=== PATIENT | female | born 1975 | race American Indian/Alaskan Native ===

== ENCOUNTER 2019-07-30 23:40 | Emergency (ER) | payer SELFPAY ==
[2019-07-31] MEDS ORDERED: SODIUM CHLORIDE 0.9% 1000 ML 1,000 ML IV ONE ×2 (00:02→01:30)
--- NOTE | 2019-07-31 00:05 | Emergency Department Report ---
<GIBSON LANCASTERRENE - Last Filed: 07/31/19 02:27> ED Altered Mental Status HPI - General Chief Complaint: Altered Mental Status Stated Complaint: ETOH Time Seen by Provider: 07/30/19 23:58 Source: EMS Mode of arrival: Stretcher Limitations: Altered Mental Status - History of Present Illness Initial Comments: Patient is a 44-year-old female that presents emergency room for altered mental status and decreased responsiveness. Patient was at a bar and was having some drinks and fell and hit her head. After that the patient was then found in the car unresponsive and breathing 6 times a minute by EMS. Patient was given Na rcan by EMS and then became more responsive and breathing 20 times a minute. MD Complaint: altered mental status, confusion, decreased responsiveness Context: alcohol abuse - Related Data Allergies Allergy/AdvReac Type Severity Reaction Status Date / Time Unable to Assess Allergy Verified 07/31/19 01:21 ED Review of Systems Comment: Unobtainable due to pts medical conditions ED Past Medical Hx - Surgical History Past Surgical History?: No - Family History Family history: no significant - Social History Smoking Status: Unknown if ever smoked Substance Use Type: Alcohol, Other ED Physical Exam - General Limitations: Altered Mental Status General appearance: alert, in no apparent distress - Head Head exam: Present: atraumatic, normocephalic - Eye Eye exam: Present: normal appearance - ENT ENT exam: Present: mucous membranes moist - Neck Neck exam: Present: normal inspection - Respiratory Respiratory exam: Present: normal lung sounds bilaterally. Absent: respiratory distress - Cardiovascular Cardiovascular Exam: Present: regular rate, normal rhythm. Absent: systolic murmur, diastolic murmur, rubs, gallop - GI/Abdominal GI/Abdominal exam: Present: soft, normal bowel sounds - Rectal Rectal exam: Present: deferred - Extremities Exam Extremities exam: Present: normal inspection - Back Exam Back exam: Present: normal inspection - Neurological Exam Neurological exam: Present: altered - Skin Skin exam: Present: warm, dry, intact, normal color. Absent: rash - Assessment Assessment Interval: Baseline - Level of Consciousness 1a. Level of Consciousness: arousable/minor stimuli - LOC Questions 1b. LOC Questions: answers 1 question correctly - LOC Command 1c. LOC Commands: performs 1 task correctly - Best Gaze 2. Best Gaze: normal - Visual 3. Visual: no visual loss - Facial Palsy 4. Facial Palsy: normal symmetrical movement - Motor Arm 5a. Motor Arm Left: no drift 5b. Motor Arm Right: no drift - Motor Leg 6a. Motor Leg Left: no drift 6b. Motor Leg Right: no drift - Limb Ataxia 7. Limb Ataxia: absent - Sensory 8. Sensory: normal - Best Language 9. Best Language: no aphasia - Dysarthria 10. Dysarthria: normal - Extinction and Inattention 11. Extinction/Inattention: no abnormality - Scoring Total Score: 3 Stroke Severity: Minor Stroke ED Course - Reevaluation(s) Reevaluation #1: Patient is currently restrained with soft wrist restraints due to patient getting up out of bed and risk of fall. Patient is acutely intoxicated. Patient at this time is answering more questions and is more verbal. Patient denies pain. Patient states she feels fine. Patient will be given 10 mg of Geodon. 07/31/19 01:31 Reevaluation #2: Patient will remain in the ER until she is clinically and legally sober. Patient will remain in the ER until blood alcohol is 0.08 and patient is alert and oriented. Patient signed out to oncoming physician. Patient placed on a 2012. 07/31/19 02:30 - Lab Data Result diagrams: 07/31/19 00:32 07/31/19 00:32 - Radiology Data Radiology results: report reviewed, image reviewed CT head/brain wo con INDICATION / CLINICAL INFORMATION: MAIN: ALTERED MENTAL STATUS. HEAD INJURY.. TECHNIQUE: Axial CT imaging of the brain was obtained without contrast. Coronal and sagittal reformatted imaging obtained and reviewed. All CT scans at this location are performed using CT dose reduction for ALARA by means of automated exposure control. COMPARISON: Comparison is with prior head CT 05/18/2009 FINDINGS: The quality of the exam is degraded by patient motion artifact.: Given this limitation of motion artifact, I do not see any evidence for intracranial hemorrhage, mass, or midline shift. No extra-axial fluid collection or suggestion of acute territorial infarction. The ventricular system and basilar cisterns are unremarkable. Visualized paranasal sinuses and mastoid air cells are well aerated and clear. No visible calvarial fracture. IMPRESSION: 1. Limited exam due to excessive patient motion artifact. Given this limitation I do not see evidence for acute intracranial abnormality. - Medical Decision Making Patient is a 44-year-old female that presents emergency room with complaints of altered mental status and possible head injury. Patient was found unresponsive in a car in a parking lot of a bar. Patient had a head CT which shows no acute finding. Patient's labs unremarkable except for a severely elevated blood alcohol level at 0.49 and anemia. Patient given a banana bag and multiple liters of fluid. Patient monitored in the ER until she is clinically stable and legally sober. Patient will be held until her blood alcohol is at 0.08, the legal limit or until a family member can come in sign the patient out. - Differential Diagnosis etoh. Acute intoxication, drug overdose, Critical Care Time: Yes Critical care time in (mins) excluding proc time.: 45 Critical Care Time: 45 MINUTES ED Disposition Clinical Impression: Acute alcohol intoxication Qualifiers: Complication of substance-induced condition: uncomplicated Qualified Code(s): F10.920 - Alcohol use, unspecified with intoxication, uncomplicated Disposition: DC-01 TO HOME OR SELFCARE Is pt being admited?: No Does the pt Need Aspirin: No Condition: Stable Instructions: Alcohol Intoxication (ED), Abuse of Alcohol (ED), At-Risk Alcohol Use (ED) Additional Instructions: Patient to follow-up with primary care in 2 to 3 days. Patient to go to detox. Patient to reduce alcohol intake. Patient to rest. Patient to increase water. Patient to take Tylenol or ibuprofen as needed for pain. Patient to return to the ER if condition worsens, changes or new symptoms arise. Referrals: ANGIE CLAYTON MD [Staff Physician] - 3-5 Days [facility] [Provider Group] - 3-5 Days [facility] [Provider Group] - 3-5 Days <NATALIA GASTON - Last Filed: 07/31/19 14:26> ED Review of Systems ROS: Stated complaint: ETOH Other details as noted in HPI ED Course Vital Signs 07/30/19 07/30/19 07/31/19 23:44 23:56 00:00 Temperature Pulse Rate 72 77 86 Respiratory 15 14 18 Rate Blood Pressure 128/86 Blood Pressure 128/86 [Right] O2 Sat by Pulse 95 97 Oximetry 07/31/19 07/31/19 07/31/19 00:01 00:40 01:58 Temperature 97.9 F Pulse Rate 111 H Respiratory 15 Rate Blood Pressure 128/86 128/86 Blood Pressure [Right] O2 Sat by Pulse 54 L Oximetry 07/31/19 07/31/19 07/31/19 02:00 02:01 02:16 Temperature Pulse Rate 93 H 90 107 H Respiratory 18 17 23 Rate Blood Pressure 115/71 115/71 Blood Pressure 115/71 [Right] O2 Sat by Pulse 100 100 98 Oximetry 07/31/19 07/31/19 07/31/19 02:30 02:45 03:00 Temperature Pulse Rate 88 120 H 104 H Respiratory 16 20 16 Rate Blood Pressure 115/71 115/71 141/94 Blood Pressure [Right] O2 Sat by Pulse 100 100 100 Oximetry 07/31/19 07/31/19 07/31/19 03:15 03:31 03:45 Temperature Pulse Rate 95 H 107 H 87 Respiratory 15 14 11 L Rate Blood Pressure 141/94 141/94 141/94 Blood Pressure [Right] O2 Sat by Pulse 100 100 100 Oximetry 07/31/19 07/31/19 07/31/19 04:01 05:01 06:01 Temperature Pulse Rate 79 74 70 Respiratory 11 L 12 11 L Rate Blood Pressure 131/101 117/85 126/79 Blood Pressure [Right] O2 Sat by Pulse 100 100 100 Oximetry 07/31/19 07/31/19 07/31/19 07:00 08:00 13:59 Temperature 98.7 F Pulse Rate 71 66 78 Respiratory 13 11 L 16 Rate Blood Pressure 141/91 151/88 Blood Pressure 131/75 [Right] O2 Sat by Pulse 100 100 100 Oximetry - Reevaluation(s) Reevaluation #3: 07/31/19 14:24 Patient is currently awake, alert, oriented, clinically sober at this time, and speaking on a cellular phone. She indicates that she does not have physical pain at this time. She is not homicidal or suicidal at this time. She endorses that she has a friend/relative who can come by and pick her up. She is taking multivitamins as an outpatient. No active vomiting. She is asking to drink water. Laboratory studies are reviewed. There is no midline cervical spine pain or tenderness. She is moving 4 extremities spontaneously. - Lab Data Result diagrams: 07/31/19 00:32 07/31/19 00:32 Lab Results 07/31/19 07/31/19 07/31/19 Range/Units 00:32 00:32 00:32 WBC 4.9 (4.5-11.0) K/mm3 RBC 4.35 (3.65-5.03) M/mm3 Hgb 8.0 L (10.1-14.3) gm/dl Hct 27.5 L (30.3-42.9) % MCV 63 L (79-97) fl MCH 18 L (28-32) pg MCHC 29 L (30-34) % RDW 21.1 H (13.2-15.2) % Plt Count 224 (140-440) K/mm3 Lymph % (Auto) 37.0 H (13.4-35.0) % Yell % (Auto) 8.0 H (0.0-7.3) % Eos % (Auto) 1.2 (0.0-4.3) % Baso % (Auto) 0.7 (0.0-1.8) % Lymph # 1.8 (1.2-5.4) K/mm3 Yell # 0.4 (0.0-0.8) K/mm3 Eos # 0.1 (0.0-0.4) K/mm3 Baso # 0.0 (0.0-0.1) K/mm3 Seg Neutrophils % 53.1 (40.0-70.0) % Seg Neutrophils # 2.6 (1.8-7.7) K/mm3 Sodium 141 (137-145) mmol/L Potassium 3.7 (3.6-5.0) mmol/L Chloride 105.2 (98-107) mmol/L Carbon Dioxide 24 (22-30) mmol/L Anion Gap 16 mmol/L BUN 7 (7-17) mg/dL Creatinine 0.5 L (0.7-1.2) mg/dL Estimated GFR > 60 ml/min BUN/Creatinine Ratio 14 % Glucose 114 H (65-100) mg/dL Calcium 8.6 (8.4-10.2) mg/dL Total Bilirubin 0.30 (0.1-1.2) mg/dL AST 99 H (5-40) units/L ALT 38 (7-56) units/L Alkaline Phosphatase 81 (35-129) units/L Total Protein 8.9 H (6.3-8.2) g/dL Albumin 4.1 (3.9-5) g/dL Albumin/Globulin Ratio 0.9 % HCG, Qual (Negative) Urine Color (Yellow) Urine Turbidity (Clear) Urine pH (5.0-7.0) Ur Specific [place] (1.003-1.030) Urine Protein (Negative) mg/dL Urine Glucose (UA) (Negative) mg/dL Urine Ketones (Negative) mg/dL Urine Blood (Negative) Urine Nitrite (Negative) Urine Bilirubin (Negative) Urine Urobilinogen (<2.0) mg/dL Ur Leukocyte Esterase (Negative) Urine WBC (Auto) (0.0-6.0) /HPF Urine RBC (Auto) (0.0-6.0) /HPF Salicylates 1.9 L (2.8-20.0) mg/dL Urine Opiates Screen Urine Methadone Screen Acetaminophen (10.0-30.0) ug/mL Ur Barbiturates Screen Ur Phencyclidine Scrn Ur Amphetamines Screen U Benzodiazepines Scrn Urine Cocaine Screen U Marijuana (THC) Screen Drugs of Abuse Note Plasma/Serum Alcohol (0-0.07) % 07/31/19 07/31/19 07/31/19 Range/Units 00:32 00:32 00:32 WBC (4.5-11.0) K/mm3 RBC (3.65-5.03) M/mm3 Hgb (10.1-14.3) gm/dl Hct (30.3-42.9) % MCV (79-97) fl MCH (28-32) pg MCHC (30-34) % RDW (13.2-15.2) % Plt Count (140-440) K/mm3 Lymph % (Auto) (13.4-35.0) % Yell % (Auto) (0.0-7.3) % Eos % (Auto) (0.0-4.3) % Baso % (Auto) (0.0-1.8) % Lymph # (1.2-5.4) K/mm3 Yell # (0.0-0.8) K/mm3 Eos # (0.0-0.4) K/mm3 Baso # (0.0-0.1) K/mm3 Seg Neutrophils % (40.0-70.0) % Seg Neutrophils # (1.8-7.7) K/mm3 Sodium (137-145) mmol/L Potassium (3.6-5.0) mmol/L Chloride (98-107) mmol/L Carbon Dioxide (22-30) mmol/L Anion Gap mmol/L BUN (7-17) mg/dL Creatinine (0.7-1.2) mg/dL Estimated GFR ml/min BUN/Creatinine Ratio % Glucose (65-100) mg/dL Calcium (8.4-10.2) mg/dL Total Bilirubin (0.1-1.2) mg/dL AST (5-40) units/L ALT (7-56) units/L Alkaline Phosphatase (35-129) units/L Total Protein (6.3-8.2) g/dL Albumin (3.9-5) g/dL Albumin/Globulin Ratio % HCG, Qual Negative (Negative) Urine Color (Yellow) Urine Turbidity (Clear) Urine pH (5.0-7.0) Ur Specific [place] (1.003-1.030) Urine Protein (Negative) mg/dL Urine Glucose (UA) (Negative) mg/dL Urine Ketones (Negative) mg/dL Urine Blood (Negative) Urine Nitrite (Negative) Urine Bilirubin (Negative) Urine Urobilinogen (<2.0) mg/dL Ur Leukocyte Esterase (Negative) Urine WBC (Auto) (0.0-6.0) /HPF Urine RBC (Auto) (0.0-6.0) /HPF Salicylates (2.8-20.0) mg/dL Urine Opiates Screen Urine Methadone Screen Acetaminophen < 5.0 L (10.0-30.0) ug/mL Ur Barbiturates Screen Ur Phencyclidine Scrn Ur Amphetamines Screen U Benzodiazepines Scrn Urine Cocaine Screen U Marijuana (THC) Screen Drugs of Abuse Note Plasma/Serum Alcohol 0.49 H (0-0.07) % 07/31/19 07/31/19 07/31/19 Range/Units 02:56 12:26 Unknown WBC (4.5-11.0) K/mm3 RBC (3.65-5.03) M/mm3 Hgb (10.1-14.3) gm/dl Hct (30.3-42.9) % MCV (79-97) fl MCH (28-32) pg MCHC (30-34) % RDW (13.2-15.2) % Plt Count (140-440) K/mm3 Lymph % (Auto) (13.4-35.0) % Yell % (Auto) (0.0-7.3) % Eos % (Auto) (0.0-4.3) % Baso % (Auto) (0.0-1.8) % Lymph # (1.2-5.4) K/mm3 Yell # (0.0-0.8) K/mm3 Eos # (0.0-0.4) K/mm3 Baso # (0.0-0.1) K/mm3 Seg Neutrophils % (40.0-70.0) % Seg Neutrophils # (1.8-7.7) K/mm3 Sodium (137-145) mmol/L Potassium (3.6-5.0) mmol/L Chloride (98-107) mmol/L Carbon Dioxide (22-30) mmol/L Anion Gap mmol/L BUN (7-17) mg/dL Creatinine (0.7-1.2) mg/dL Estimated GFR ml/min BUN/Creatinine Ratio % Glucose (65-100) mg/dL Calcium (8.4-10.2) mg/dL Total Bilirubin (0.1-1.2) mg/dL AST (5-40) units/L ALT (7-56) units/L Alkaline Phosphatase (35-129) units/L Total Protein (6.3-8.2) g/dL Albumin (3.9-5) g/dL Albumin/Globulin Ratio % HCG, Qual (Negative) Urine Color Colorless (Yellow) Urine Turbidity Clear (Clear) Urine pH 6.0 (5.0-7.0) Ur Specific [place] 1.002 L (1.003-1.030) Urine Protein <15 mg/dl (Negative) mg/dL Urine Glucose (UA) Neg (Negative) mg/dL Urine Ketones Neg (Negative) mg/dL Urine Blood Neg (Negative) Urine Nitrite Neg (Negative) Urine Bilirubin Neg (Negative) Urine Urobilinogen < 2.0 (<2.0) mg/dL Ur Leukocyte Esterase Neg (Negative) Urine WBC (Auto) 0.0 (0.0-6.0) /HPF Urine RBC (Auto) 0.0 (0.0-6.0) /HPF Salicylates (2.8-20.0) mg/dL Urine Opiates Screen Urine Methadone Screen Acetaminophen (10.0-30.0) ug/mL Ur Barbiturates Screen Ur Phencyclidine Scrn Ur Amphetamines Screen U Benzodiazepines Scrn Urine Cocaine Screen U Marijuana (THC) Screen Drugs of Abuse Note Plasma/Serum Alcohol 0.41 H 0.22 H (0-0.07) % 07/30/ Range/Units Unknown WBC (4.5-11.0) K/mm3 RBC (3.65-5.03) M/mm3 Hgb (10.1-14.3) gm/dl Hct (30.3-42.9) % MCV (79-97) fl MCH (28-32) pg MCHC (30-34) % RDW (13.2-15.2) % Plt Count (140-440) K/mm3 Lymph % (Auto) (13.4-35.0) % Yell % (Auto) (0.0-7.3) % Eos % (Auto) (0.0-4.3) % Baso % (Auto) (0.0-1.8) % Lymph # (1.2-5.4) K/mm3 Yell # (0.0-0.8) K/mm3 Eos # (0.0-0.4) K/mm3 Baso # (0.0-0.1) K/mm3 Seg Neutrophils % (40.0-70.0) % Seg Neutrophils # (1.8-7.7) K/mm3 Sodium (137-145) mmol/L Potassium (3.6-5.0) mmol/L Chloride (98-107) mmol/L Carbon Dioxide (22-30) mmol/L Anion Gap mmol/L BUN (7-17) mg/dL Creatinine (0.7-1.2) mg/dL Estimated GFR ml/min BUN/Creatinine Ratio % Glucose (65-100) mg/dL Calcium (8.4-10.2) mg/dL Total Bilirubin (0.1-1.2) mg/dL AST (5-40) units/L ALT (7-56) units/L Alkaline Phosphatase (35-129) units/L Total Protein (6.3-8.2) g/dL Albumin (3.9-5) g/dL Albumin/Globulin Ratio % HCG, Qual (Negative) Urine Color (Yellow) Urine Turbidity (Clear) Urine pH (5.0-7.0) Ur Specific [place] (1.003-1.030) Urine Protein (Negative) mg/dL Urine Glucose (UA) (Negative) mg/dL Urine Ketones (Negative) mg/dL Urine Blood (Negative) Urine Nitrite (Negative) Urine Bilirubin (Negative) Urine Urobilinogen (<2.0) mg/dL Ur Leukocyte Esterase (Negative) Urine WBC (Auto) (0.0-6.0) /HPF Urine RBC (Auto) (0.0-6.0) /HPF Salicylates (2.8-20.0) mg/dL Urine Opiates Screen Presumptive negative Urine Methadone Screen Presumptive negative Acetaminophen (10.0-30.0) ug/mL Ur Barbiturates Screen Presumptive negative Ur Phencyclidine Scrn Presumptive negative Ur Amphetamines Screen Presumptive negative U Benzodiazepines Scrn Presumptive negative Urine Cocaine Screen Presumptive negative U Marijuana (THC) Screen Presumptive negative Drugs of Abuse Note Disclamer Plasma/Serum Alcohol (0-0.07) % Critical care attestation.: If time is entered above; I have spent that time in minutes in the direct care of this critically ill patient, excluding procedure time. ED Disposition Is pt being admited?: No Does the pt Need Aspirin: No
[2019-07-31 00:43] LABS: Basophils % (Auto) 0.7 % (0.0-1.8); Eosinophils # (Auto) 0.1 K/mm3 (0.0-0.4); Eosinophils % (Auto) 1.2 % (0.0-4.3); Lymphocytes # (Auto) 1.8 K/mm3 (1.2-5.4); Mean Corpuscular HGB Conc 29 % (30-34); Monocytes # (Auto) 0.4 K/mm3 (0.0-0.8); Platelet Count 224 K/mm3 (140-440); Red Blood Count 4.35 M/mm3 (3.65-5.03)
[2019-07-31 00:52] LABS: Hematocrit 27.5 % (30.3-42.9); Mean Corpuscular Volume 63 fl (79-97)
[2019-07-31 00:53] LABS: Red Cell Distribution Width 21.1 % (13.2-15.2)
[2019-07-31 01:10] LABS: Alanine Aminotransferase 38 units/L (7-56); Albumin 4.1 g/dL (3.9-5); BUN/Creatinine Ratio 14; Blood Urea Nitrogen 7 mg/dL (7-17); Calcium 8.6 mg/dL (8.4-10.2); Hemolysis Index 0
[2019-07-31] MEDS ORDERED: ZIPRASIDONE MESYLATE 20 MG VIAL IM ONE ×2 (01:12)
--- NOTE | 2019-07-31 01:14 | Cat Scan Report ---
CT head/brain wo con INDICATION / CLINICAL INFORMATION: MAIN: ALTERED MENTAL STATUS. HEAD INJURY.. TECHNIQUE: Axial CT imaging of the brain was obtained without contrast. Coronal and sagittal reformatted imaging obtained and reviewed. All CT scans at this location are performed using CT dose reduction for ALAR A by means of automated exposure control. COMPARISON: Comparison is with prior head CT 05/18/2009 FINDINGS: The quality of the exam is degraded by patient motion artifact.: Given this limitation of motion artifact, I do not see any evidence for intracranial hemorrhage, mas s, or midline shift. No extra-axial fluid collection or suggestion of acute territorial infarction. The ventricular system and basilar cisterns are unremarkable. Visualized paranasal sinuses and mastoid air cells are well aerated and clear. No visible calvarial f racture. IMPRESSION: 1. Limited exam due to excessive patient motion artifact. Given this limitation I do not see evidence for acute intracranial abnormality. Signer Name: Sheyla Hammer MD Signed: 07/31/2019 1:10 AM Workstation Name: [id number]
[2019-07-31] MEDS ORDERED: THIAMINE 100 MG, FOLIC ACID 1 MG, MULTIPLE VITAMIN INJ, ADULT 10 ML in SODIUM CHLORIDE ... IV ONE (01:30)
[2019-07-31 01:48] LABS: Bilirubin,Urine NEG (Negative); Blood,Urine NEG (Negative); Color,Urine Colorless (Yellow); Protein,Urine <15 mg/dL mg/dL (Negative); Urobilinogen,Urine < 2.0 mg/dL (<2.0)
[2019-07-31 01:55] LABS: Amphetamine Screen,Urine PRESUMPTIVE NEGATIVE; Benzodiazepines Screen,Urine PRESUMPTIVE NEGATIVE; Cannabinoid Screen,Urine PRESUMPTIVE NEGATIVE; Cocaine Screen,Urine PRESUMPTIVE NEGATIVE; Methadone Screen,Urine PRESUMPTIVE NEGATIVE; Opiate Screen,Urine PRESUMPTIVE NEGATIVE
[2019-07-31 14:01] VITALS: BP 131/75
== END 2019-07-31 14:46 | disposition home or self-care (01) ==
LOC: ED 23:40
DX: F10.129 Alcohol abuse with intoxication, unspecified (principal); R41.82 Altered mental status, unspecified
CPT/HCPCS: 36415; 70450; 80053; 80307; 81001; 84703; 85025; 96361; 96365; 96372; 99285; J3411; J3486; J7030; 80320; G0480

== ENCOUNTER 2019-10-18 15:54 | Emergency (ER) | payer SELFPAY ==
[2019-10-18 16:04] VITALS: BP 117/87
--- NOTE | 2019-10-18 17:42 | Emergency Department Report ---
ED Female HPI - General Chief complaint: Urogenital-Female Stated complaint: TAMPON STUCK IN VAG Time Seen by Provider: 10/18/19 17:00 Source: patient Mode of arrival: Ambulatory Limitations: No Limitations - History of Present Illness Initial comments: 44-year-old -[place] female presents to the emergency room concerned that she has a tampon stuck in her vaginal wall x2 days. Patient denies any pelvic pain or abdominal pain. Admits to intermittent vaginal bleeding. Patient states that she just ended her period last week and she had some spotting when she placed a tampon in her vaginal area. Patient is unaware if she placed to you as she was under the influence of alcohol. Patient denies any fever or chills denies any abdominal pain or pelvic pain. MD Complaint: vaginal bleeding, other (Possible foreign body in vaginal) Onset/Timin Location: suprapubic Severity scale (0 -10): 0 Last Menstrual Period: 10/11/19 EDC: 07/17/20 Associated Symptoms: denies other symptoms - Related Data Sexually active: Yes Allergies Allergy/AdvReac Type Severity Reaction Status Date / Time No Known Allergies Allergy Unverified 10/18/19 16:02 ED Review of Systems ROS: Stated complaint: TAMPON STUCK IN VAG Other details as noted in HPI Comment: All other systems reviewed and negative ED Past Medical Hx - Past Medical History Previous Medical History?: No - Surgical History Past Surgical History?: No - Social History Smoking Status: Current Every Day Smoker Substance Use Type: None ED Physical Exam - General Limitations: No Limitations General appearance: alert, in no apparent distress - Head Head exam: Present: atraumatic, normocephalic - Eye Eye exam: Present: normal appearance - ENT ENT exam: Present: mucous membranes moist - Neck Neck exam: Present: normal inspection, full ROM - External exam: Present: normal external exam Speculum exam: Present: vaginal bleeding. Absent: foreign body Bi-manual exam: Present: normal bi-manual exam - Extremities Exam Extremities exam: Present: normal inspection, full ROM - Back Exam Back exam: Present: normal inspection, full ROM - Neurological Exam Neurological exam: Present: alert, oriented X3, normal gait - Psychiatric Psychiatric exam: Present: normal affect, normal mood - Skin Skin exam: Present: warm, dry, intact, normal color. Absent: rash ED Course Vital Signs 10/18/19 16:04 Temperature 98.5 F Pulse Rate 81 Respiratory 16 Rate Blood Pressure 117/87 [Right] O2 Sat by Pulse 98 Oximetry ED Medical Decision Making - Medical Decision Making 44-year-old -[place] female presents to the emergency room concerned that she has a tampon stuck in her vaginal wall x2 days. Patient denies any pelvic pain or abdominal pain. Admits to intermittent vaginal bleeding. Patient states that she just ended her period last week and she had some spotting when she placed a tampon in her vaginal area. Patient is unaware if she placed to you as she was under the influence of alcohol. Patient denies any fever or chills denies any abdominal pain or pelvic pain. Pelvic exam not able to appreciate any foreign body in the vaginal vault. Discussed with patient to follow-up with an QUALITY CONTROL COORDINATOR. I did discuss with patient I saw in very flat height pill pigmented lesion in her vaginal wall. Discussed with patient she needs to definitely follow-up with an QUALITY CONTROL COORDINATOR just to be sure there is no other further concerns. Critical care attestation.: If time is entered above; I have spent that time in minutes in the direct care of this critically ill patient, excluding procedure time. ED Disposition Clinical Impression: Foreign body in vagina Disposition: DC-01 TO HOME OR SELFCARE Is pt being admited?: No Does the pt Need Aspirin: No Condition: Stable Additional Instructions: Very important for you to follow-up with an QUALITY CONTROL COORDINATOR for the concern of abnormal flat lesion in the vaginal area. Also if you have any pain foul odor with still feels like there is a foreign body in vaginal wall please return back to the emergency room immediately. Referrals: [facility] [Provider Group] - 3-5 Days ANGIE CLAYTON MD [Staff Physician] - 3-5 Days [facility] [Provider Group] - 3-5 Days
== END 2019-10-18 18:35 | disposition home or self-care (01) ==
LOC: ED 15:54
DX: T19.2XXA Foreign body in vulva and vagina, initial encounter (principal); F17.200 Nicotine dependence, unspecified, uncomplicated; X58.XXXA Exposure to other specified factors, initial encounter; Y93.89 Activity, other specified; Y92.89 Other specified places as the place of occurrence of the external cause; Y99.8 Other external cause status
CPT/HCPCS: 99282